=== PATIENT | male | born 1975 | race Caucasian/White ===

== ENCOUNTER 2018-09-04 18:33 | Emergency (ER) | payer MEDICAID ==
[~2018-09-04] VITALS: Ht 175.3 cm; Wt 72.6 kg
[2018-09-04 18:48] VITALS: BP 118/76
[2018-09-04] MEDS ORDERED: SEROQUEL300 MG ORAL (18:48)
--- NOTE | 2018-09-04 18:49 | Emergency Room Report ---
History of Present Illness General Chief Complaint: Medication Refill Source: Patient Present Illness HPI 43-year-old male patient presents ER brought in by ambulance requesting medication refill. patient states he has a history of depression and is taking Seroquel 300 mg daily. States he has been taking it for over 10 years. Contrary to triage report is not requesting refill of temazepam. Patient denies thoughts of hurting himself or others at this time. Denies acute complaints. Denies fever, chest pain, shortness of breath. denies about pain. Reports has a primary care provider that normally provides refills of medications, states was last seen last week. Denies drinking, drugs, alcohol. Allergies: Coded Allergies: PENICILLINS (Unverified Allergy, Unknown, 09/04/18) Patient History Past Medical History: see triage record Reviewed Nursing Documentation: PMH: Agreed; PSxH: Agreed Nursing Documentation-PMH Past Medical History: No History, Except For History Of Psychiatric Problem: Yes - Depression Review of Systems All Other Systems: negative except mentioned in HPI Physical Exam Vital Signs Date Time Temp Pulse Resp B/P (MAP) Pulse Ox O2 Delivery O2 Flow Rate FiO2 09/04/18 18:30 98.1 106 16 118/76 99 Room Air Sp02 EP Interpretation: reviewed, normal General Appearance: well appearing, no apparent distress, alert, GCS 15, non- toxic Head: normocephalic, atraumatic Eyes: bilateral eye normal inspection, bilateral eye PERRL ENT: hearing grossly normal, normal pharynx, no angioedema, normal voice, uvula midline, moist mucus membranes Neck: full range of motion Respiratory: lungs clear, normal breath sounds, no rhonchi, no respiratory distress, no accessory muscle use, no wheezing, speaking full sentences Cardiovascular #1: regular rate, rhythm, no edema Gastrointestinal: non tender, soft, no mass, non-distended, no guarding, no rebound Musculoskeletal: back normal, digits/nails normal, gait/station normal, normal range of motion, non-tender Neurologic: alert, oriented x3, responsive, motor strength/tone normal, sensory intact Psychiatric: mood/affect normal Skin: no rash Medical Decision Making PA Attestation Dr. Thayer is my supervising Physician whom patient management has been discussed with. Diagnostic Impression: Primary Impression: Encounter for medication refill Additional Impression: History of depression ER Course Pt. presents to the ED requesting prescription refill. Multiple differentials were considered. Vital signs: are WNL, pt. is afebrile ORDERS: PE benign Informed patient the ER does not normally provide refills of medications. denies thoughts of hurting himself or others at this time. Will not provide refill of medication for 1 week. provided with contact information for mental health urgent care. Followup with PCP and discuss referral to mental health professional. Informed patient ER cannot provide refills in the future; followup, management and prescription of long-term medications must be performed by primary care provider. DISCHARGE: Rx provided for Seroquel At this time pt is stable for d/c to home. Patient is resting comfortably, in no acute distress, nontoxic appearing, talking without difficulty. Patient to take medications as instructed Will provide with patient care instructions and any necessary prescriptions. Care plan and follow-up instructions provided. Patient instructed to follow-up with primary care provider in 3 - 5 days. Patient questions asked and answered. Patient reports understanding and agreement to treatment plan. ER precautions given. Patient instructed to return to ER immediately for any new or worsening of symptoms including but not limited to increasing SOB, persistent fever. - Please note that this Emergency Department Report was dictated using [employer]data warehouse manager technology software, occasionally this can lead to erroneous entry secondary to interpretation by the dictation equipment. Last Vital Signs Date Time Temp Pulse Resp B/P (MAP) Pulse Ox O2 Delivery O2 Flow Rate FiO2 09/04/18 18:30 98.1 106 16 118/76 99 Room Air Disposition: HOME, SELF-CARE Condition: Stable Scripts Quetiapine Fumarate (SEROQUEL) 300 Mg Tablet 300 MG ORAL DAILY, #7 TAB Prov: Fernando Galvan 09/04/18 Patient Instructions: Medicine Refill at the Emergency Department Additional Instructions: Followup with primary care provider in 3 -5 days. Follow-up with mental health professional. Follow-up with mental health urgent care. Take medications as directed. Patient questions asked and answered. ER precautions given, patient instructed to return to ER immediately for any new or worsening of symptoms. Fernando Galvan Sep 04, 2018 18:48
[2018-09-04 20:21] VITALS: BP 135/65
== END 2018-09-04 20:21 | disposition home or self-care (01) ==
LOC: EDBD 18:33 → EMR 18:48
DX: Z76.0 Encounter for issue of repeat prescription (principal); F32.9 Major depressive disorder, single episode, unspecified; Z88.0 Allergy status to penicillin
CPT/HCPCS: 99283